=== PATIENT | female | born 1965 | race Caucasian/White ===

== ENCOUNTER 2018-12-08 14:33 | Outpatient (CLI) | payer OTHER ==
--- NOTE | 2018-12-08 15:35 | MMO ---
Bilateral MAMMO Bilat Diag [facility]. CLINICAL HISTORY: Patient is 53 years old and is seen for diagnostic exam. The patient has no family history of breast cancer. The patient has no personal history of cancer. VIEWS: The views performed were: bilateral craniocaudal with tomosynthesis; bilateral mediolateral oblique with tomosynthesis; bilateral mediolateral with tomosynthesis; and right exaggerated craniocaudal. FILMS COMPARED: The present examination has been compared to prior imaging studies performed at [facility] on 04/20/2017 and 12/08/2018. MAMMOGRAM FINDINGS: There are scattered fibroglandular densities. No mammographic or sonograhic abnormality is seen at the site of palpable concern in the left breast. There are no suspicious masses, suspicious calcifications, or new areas of architectural distortion. IMPRESSION: THERE IS NO MAMMOGRAPHIC EVIDENCE OF MALIGNANCY. A ROUTINE FOLLOW-UP MAMMOGRAM IN 1 YEAR IS RECOMMENDED. THE RESULTS OF THIS EXAM WERE SENT TO THE PATIENT. ACR BI-RADS Category 2 - Benign finding MAMMOGRAPHY NOTE: 1. A negative mammogram report should not delay a biopsy if a dominant of clinically suspicious mass is present. 2. Approximately 10% to 15% of breast cancers are not detected by mammography. 3. Adenosis and dense breasts may obscure an underlying neoplasm.
--- NOTE | 2018-12-08 16:10 | ULT ---
LEFT BREAST ULTRASOUND: 12/08/18 HISTORY: Possible abnormality of the 2-3 o'clock position of the left breast. FINDINGS: Correlation is made with mammogram same day. Sonographic evaluation of the region of palpable concern of the 2 and 3 o'clock positions of the left breast demonstrates no abnormality. IMPRESSION: 1. BIRADS 2: Benign Finding(s) Routine annual screening mammography (for women over age 40). 2. Further evaluation (including biopsy) of the region of palpable concern should be based on cl inical findings/suspicion. POS: OFF
== END 2018-12-08 14:34 | disposition home or self-care (01) ==
LOC: BICMAMMO 14:33
PROVIDERS: ATTEND Specialist
DX: N63.10 Unspecified lump in the right breast, unspecified quadrant (principal); N63.20 Unspecified lump in the left breast, unspecified quadrant
CPT/HCPCS: 77066; G0279